=== PATIENT | female | born 1930 | race Caucasian/White ===

== ENCOUNTER 2017-12-14 10:11 | Outpatient (CLI) | payer MEDICARE, OTHER ==
[~2017-12-14] VITALS: Ht 167.6 cm; Wt 81.6 kg
[~2017-12-14 10:11] MED LIST: AMIO200T57 PO; APIX2.5T PO; ATOR10TA PO; CEFP100T7 PO; CHOL200035 PO; ESOM20CA PO; LEVO75TA PO; NEBI20TA2 PO; POTA20TA10 PO; VALS1TAB79 PO; ZOLP5TAB8 PO
[2017-12-14 10:36] LABS: TOTAL HEMOGLOBIN 13.2 G/dl (12.0-16.0)
[2017-12-14] MEDS: albuterol 2.5 MG/3 ML nebule NEB ONE (11:12)
== END 2017-12-14 23:59 | disposition home or self-care (01) ==
LOC: RT 10:11
PROVIDERS: ATTEND Internal Medicine Cardiovascular Disease
DX: I10 Essential (primary) hypertension (principal); Z85.828 Personal history of other malignant neoplasm of skin; Z79.899 Other long term (current) drug therapy
CPT/HCPCS: 71046; 85018; 94060; 94640; 94727; 94729; 94760

== ENCOUNTER 2018-12-19 12:06 | Outpatient (CLI) | payer MEDICARE, OTHER ==
[~2018-12-19 12:06] MED LIST changes: +AMIO200T40 PO; -AMIO200T57 PO
== END 2018-12-19 23:59 | disposition home or self-care (01) ==
LOC: RAD 12:06
PROVIDERS: ATTEND Internal Medicine Cardiovascular Disease
DX: Z48.812 Encounter for surgical aftercare following surgery on the circulatory system (principal); J98.4 Other disorders of lung; I10 Essential (primary) hypertension; Z95.0 Presence of cardiac pacemaker; Z90.710 Acquired absence of both cervix and uterus; Z96.611 Presence of right artificial shoulder joint; Z96.643 Presence of artificial hip joint, bilateral
CPT/HCPCS: 71046

== ENCOUNTER 2019-10-11 01:46 | Inpatient (IN) | payer MEDICARE, OTHER ==
[~2019-10-11] VITALS: Ht 167.6 cm; Wt 77.0 kg
[~2019-10-11 01:46] MED LIST changes: -AMIO200T40 PO; +AMIO200T61 PO
[2019-10-11] MEDS ORDERED: METO10TA8 PO (02:04)
[2019-10-11] MEDS ORDERED: DRON400T2 PO (02:04)
[2019-10-11 02:07] LABS: BASOPHILS # (AUTO) 0.1 X10'3 (0-0.2); BASOPHILS % (AUTO) 1.4 % (0-1); EOSINOPHILS # (AUTO) 0.2 X10'3 (0-0.9); HEMATOCRIT 35.6 % (35.0-45.0); HEMOGLOBIN 11.8 g/dl (12.0-16.0); LYMPHOCYTES # (AUTO) 1.1 X10'3 (1.1-4.8); LYMPHOCYTES % (AUTO) 24.4 % (21-51); MEAN CORPUSCULAR HEMOGLOBIN 30.2 PG (27.0-31.0); MEAN CORPUSCULAR HGB CONC 33.2 g/dL (33.0-36.5); MEAN CORPUSCULAR VOLUME 90.8 FL (78-98); MEAN PLATELET VOLUME 9.3 FL (7.4-10.4); MONOCYTES # (AUTO) 0.3 X10'3 (0-0.9); NEUTROPHILS # (AUTO) 2.8 X10'3 (1.8-7.7); NEUTROPHILS % (AUTO) 63.2 % (42-75); PLATELET COUNT 139 X10'3 (140-440); RED BLOOD COUNT 3.92 X10'6 (4.20-5.60); RED CELL DISTRIBUTION WIDTH 14.2 % (11.5-14.5); WHITE BLOOD COUNT 4.4 X10'3 (4.5-11.0)
[2019-10-11 02:17] LABS: ALANINE AMINOTRANSFERASE 26 U/L (12-78); ALBUMIN 3.8 G/DL (3.4-5.0); ALBUMIN/GLOBULIN RATIO 1.3 (1.1-1.5); ALKALINE PHOSPHATASE 82 IU/L (46-116); ANION GAP 9 (8-16); ASPARTATE AMINO TRANSFERASE 26 U/L (10-37); BILIRUBIN,TOTAL 0.4 MG/DL (0.1-1.0); BLOOD UREA NITROGEN 23 MG/DL (7-18); BUN/CREATININE RATIO 16.1 (6.6-38.0); CALCIUM 8.9 MG/DL (8.5-10.1); CHLORIDE 101 MMOL/L (99-107); CREATININE 1.43 MG/DL (0.40-0.90); GLUCOSE 113 MG/DL (70-104); POTASSIUM 4.4 MMOL/L (3.5-5.1); SODIUM 137 MMOL/L (135-145); TOTAL PROTEIN 6.7 G/DL (6.4-8.2); eGFR 35 ML/MIN
[2019-10-11] MEDS ORDERED: furosemide 10 MG/1 ML 10ml inj IV ONE (02:40)
[2019-10-11] MEDS ORDERED: acetaminophen 325mg tablet PO ONE (02:40)
[2019-10-11] MEDS ORDERED: acetaminophen 325mg tablet PO PRN (03:10)
[2019-10-11] MEDS ORDERED: morphine 2 MG/ML inj. syringe IV PRN ×2 (03:10)
[2019-10-11] MEDS ORDERED: ondansetron/PF 4mg/2ml inj IV PRN (03:10)
[2019-10-11] MEDS ORDERED: magnesium hydroxide 30ml (MOM) UD suspension PO PRN (03:10)
[2019-10-11] MEDS ORDERED: mag hydrox/Alum hydrox/simeth 30ml oral suspension PO PRN (03:10)
[2019-10-11] MEDS ORDERED: zolpidem 5mg tablet PO PRN (03:15)
[2019-10-11] MEDS: furosemide 20 MG/2 ML vial IV SCH ×3 (03:15→21:32)
[2019-10-11 03:45] VITALS: BP 150/59
[2019-10-11 06:00] VITALS: BP 134/70
--- NOTE | 2019-10-11 06:23 | NUR ---
Problems reprioritized. Patient report given, questions answered & plan of care reviewed with Yaz BARONE.
--- NOTE | 2019-10-11 06:29 | NUR ---
Patient in room PCU 3009. I have received report from Maia BARONE and had the opportunity to ask questions and assume patient care.
[2019-10-11] MEDS: dronedarone hcl 400mg tablet PO SCH ×2 (08:00→21:20)
[2019-10-11] MEDS: apixaban 2.5mg tablet PO SCH ×2 (08:32→21:21)
[2019-10-11] MEDS: potassium Cl 20 mEq SR tablet PO SCH ×2 (08:33→21:20)
[2019-10-11] MEDS: levoTHYROXINE 75mcg tablet PO SCH (08:33)
[2019-10-11] MEDS: metoprolol tartrate 50mg tablet PO SCH ×2 (08:34→21:32)
[2019-10-11] MEDS: pantoprazole 40mg Tablet.DR PO SCH (08:34)
[2019-10-11] MEDS: atorvastatin 10mg tablet PO SCH (08:35)
[2019-10-11] MEDS ORDERED: pneumococcal 23-VAL P-sac vacc 25 mcg/0.5ml vial IMVAC ONE (10:00)
[2019-10-11 11:00] VITALS: BP 143/68
[2019-10-11 15:00] VITALS: BP 132/59
[2019-10-11 18:00] VITALS: BP 122/53
--- NOTE | 2019-10-11 18:00 | NUR ---
Patient in room PCU 3009. I have received report from LIZABETH Mukherjee and had the opportunity to ask questions and assume patient care. Pt is alert and oriented X4, denies CP, SOB, n/v, rated pain 0/10.
--- NOTE | 2019-10-11 18:27 | NUR ---
Problems reprioritized. Patient report given, questions answered & plan of care reviewed with Bora BARONE. Patient stable at time of transfer of care.
[2019-10-11 22:00] VITALS: BP 132/61
[2019-10-12 02:00] VITALS: BP 100/50
[2019-10-12 05:23] LABS: BASOPHILS % (AUTO) 0.9 % (0-1); EOSINOPHILS # (AUTO) 0.1 X10'3 (0-0.9); EOSINOPHILS % (AUTO) 4.1 % (0-6); HEMOGLOBIN 10.8 g/dl (12.0-16.0); LYMPHOCYTES # (AUTO) 0.8 X10'3 (1.1-4.8); MEAN CORPUSCULAR HEMOGLOBIN 30.6 PG (27.0-31.0); MEAN CORPUSCULAR HGB CONC 33.7 g/dL (33.0-36.5); MEAN CORPUSCULAR VOLUME 90.8 FL (78-98); MEAN PLATELET VOLUME 9.4 FL (7.4-10.4); MONOCYTES # (AUTO) 0.3 X10'3 (0-0.9); MONOCYTES % (AUTO) 10.3 % (2-12); NEUTROPHILS # (AUTO) 1.8 X10'3 (1.8-7.7); NEUTROPHILS % (AUTO) 58.7 % (42-75); PLATELET COUNT 109 X10'3 (140-440); RED BLOOD COUNT 3.52 X10'6 (4.20-5.60); RED CELL DISTRIBUTION WIDTH 13.9 % (11.5-14.5)
[2019-10-12 05:32] LABS: ALBUMIN 3.5 G/DL (3.4-5.0); ANION GAP 6 (8-16); BLOOD UREA NITROGEN 31 MG/DL (7-18); BUN/CREATININE RATIO 21.1 (6.6-38.0); CHLORIDE 99 MMOL/L (99-107); CREATININE 1.47 MG/DL (0.40-0.90); GLUCOSE 101 MG/DL (70-104); POTASSIUM 3.7 MMOL/L (3.5-5.1); SODIUM 138 MMOL/L (135-145); TOTAL CARBON DIOXIDE 33.1 MMOL/L (24-32); eGFR 34 ML/MIN
[2019-10-12 06:00] VITALS: BP 135/49
--- NOTE | 2019-10-12 06:29 | NUR ---
Problems reprioritized. Patient report given, questions answered & plan of care reviewed with Yaz RN Patient stable at shift change
--- NOTE | 2019-10-12 06:29 | NUR ---
Patient in room PCU 3009. I have received report from Bora BARONE and had the opportunity to ask questions and assume patient care.
[2019-10-12 06:47] LABS: ANISOCYTOSIS 1+; PLATELET ESTIMATE DECREASED; TOTAL CELLS COUNTED 100
[2019-10-12] MEDS: metoprolol tartrate 50mg tablet PO SCH (08:00)
[2019-10-12] MEDS: atorvastatin 10mg tablet PO SCH (08:44)
[2019-10-12] MEDS: levoTHYROXINE 75mcg tablet PO SCH (08:44)
[2019-10-12] MEDS: pantoprazole 40mg Tablet.DR PO SCH (08:44)
[2019-10-12] MEDS: apixaban 2.5mg tablet PO SCH (08:44)
[2019-10-12] MEDS: potassium Cl 20 mEq SR tablet PO SCH (08:44)
[2019-10-12] MEDS: dronedarone hcl 400mg tablet PO SCH (08:44)
[2019-10-12] MEDS: furosemide 20 MG/2 ML vial IV SCH (08:46)
[2019-10-12 11:00] VITALS: BP 117/48
[2019-10-12] MEDS ORDERED: pneumococcal 23-VAL P-sac vacc 25 mcg/0.5ml vial IMVAC ONE (13:10)
--- NOTE | 2019-10-12 13:20 | NUR ---
Patient stable for discharge per MD orders. All discharge instructions reviewed with patient and all questions answered. No new prescriptions. PIV and property assessment monitor discontinued. Belongings collected and sent with patient. Patient left in private vehicle with . Patient wheeled down to lobby by PCT aide.
== END 2019-10-12 13:58 | disposition home or self-care (01) | DRG 291 ==
LOC: ER 01:47 → PCU 3S 03:58
PROVIDERS: ADMIT Internal Medicine; ATTEND Family Medicine
PROC: 3E0234Z Introduction of Serum, Toxoid and Vaccine into Muscle, Percutaneous Approach (ICD-10-PCS; principal; 2019-10-12)
DX: I13.0 Hypertensive heart and chronic kidney disease with heart failure and stage 1 through stage 4 chronic kidney disease, or unspecified chronic kidney disease (principal); I50.33 Acute on chronic diastolic (congestive) heart failure; I48.20 Chronic atrial fibrillation, unspecified; E03.9 Hypothyroidism, unspecified; D64.9 Anemia, unspecified; E78.00 Pure hypercholesterolemia, unspecified; E78.5 Hyperlipidemia, unspecified; G47.00 Insomnia, unspecified; I08.1 Rheumatic disorders of both mitral and tricuspid valves; I48.0 Paroxysmal atrial fibrillation; G47.30 Sleep apnea, unspecified; G89.29 Other chronic pain; I49.5 Sick sinus syndrome; K21.9 Gastro-esophageal reflux disease without esophagitis; M54.9 Dorsalgia, unspecified; K29.70 Gastritis, unspecified, without bleeding; N18.3 Chronic kidney disease, stage 3 (moderate); Z80.3 Family history of malignant neoplasm of breast; Z85.72 Personal history of non-Hodgkin lymphomas; Z90.49 Acquired absence of other specified parts of digestive tract; Z90.710 Acquired absence of both cervix and uterus; Z95.0 Presence of cardiac pacemaker; Z23 Encounter for immunization; Z88.0 Allergy status to penicillin; Z88.2 Allergy status to sulfonamides; Z88.8 Allergy status to other drugs, medicaments and biological substances; Z80.1 Family history of malignant neoplasm of trachea, bronchus and lung; Z79.899 Other long term (current) drug therapy
CPT/HCPCS: 36415; 71045; 80048; 80053; 83880; 84484; 85025; 87081; 90732; 93005; 93306; 96374; 99285; G0378; J1940

== ENCOUNTER 2019-10-29 10:18 | Emergency (ER) | payer MEDICARE, OTHER ==
[~2019-10-29] VITALS: Ht 167.6 cm; Wt 90.0 kg
[~2019-10-29 10:18] MED LIST changes: -AMIO200T61 PO; -CEFP100T7 PO; -CHOL200035 PO; +DRON400T2 PO; +METO10TA8 PO; -VALS1TAB79 PO
[2019-10-29 11:09] LABS: EOSINOPHILS # (AUTO) 0.1 X10'3 (0-0.9); EOSINOPHILS % (AUTO) 1.7 % (0-6); HEMATOCRIT 33.2 % (35.0-45.0); HEMOGLOBIN 11.1 g/dl (12.0-16.0); LYMPHOCYTES # (AUTO) 0.9 X10'3 (1.1-4.8); LYMPHOCYTES % (AUTO) 18.6 % (21-51); MEAN CORPUSCULAR HEMOGLOBIN 30.6 PG (27.0-31.0); MEAN CORPUSCULAR HGB CONC 33.5 g/dL (33.0-36.5); MEAN CORPUSCULAR VOLUME 91.5 FL (78-98); MONOCYTES # (AUTO) 0.4 X10'3 (0-0.9); MONOCYTES % (AUTO) 8.5 % (2-12); NEUTROPHILS # (AUTO) 3.2 X10'3 (1.8-7.7); NEUTROPHILS % (AUTO) 70.2 % (42-75); PLATELET COUNT 128 X10'3 (140-440); RED BLOOD COUNT 3.63 X10'6 (4.20-5.60); RED CELL DISTRIBUTION WIDTH 14.2 % (11.5-14.5); WHITE BLOOD COUNT 4.6 X10'3 (4.5-11.0)
[2019-10-29 11:25] LABS: ALANINE AMINOTRANSFERASE 28 U/L (12-78); ALBUMIN/GLOBULIN RATIO 1.4 (1.1-1.5); ALKALINE PHOSPHATASE 78 IU/L (46-116); ANION GAP 9 (8-16); ASPARTATE AMINO TRANSFERASE 19 U/L (10-37); BILIRUBIN,TOTAL 0.6 MG/DL (0.1-1.0); BLOOD UREA NITROGEN 25 MG/DL (7-18); BUN/CREATININE RATIO 17.4 (6.6-38.0); CALCIUM 9.1 MG/DL (8.5-10.1); CHLORIDE 103 MMOL/L (99-107); CREATININE 1.44 MG/DL (0.40-0.90); GLUCOSE 101 MG/DL (70-104); POTASSIUM 4.4 MMOL/L (3.5-5.1); SODIUM 139 MMOL/L (135-145); TOTAL CARBON DIOXIDE 26.7 MMOL/L (24-32); TOTAL PROTEIN 6.8 G/DL (6.4-8.2); eGFR 34 ML/MIN
[2019-10-29] MEDS ORDERED: furosemide 40mg/4ml inj IV ONE (13:40)
[2019-10-29 15:52] VITALS: BP 159/88
== END 2019-10-29 15:54 | disposition home or self-care (01) ==
LOC: ER 10:19
DX: I50.9 Heart failure, unspecified (principal); I48.91 Unspecified atrial fibrillation; E78.00 Pure hypercholesterolemia, unspecified; I11.0 Hypertensive heart disease with heart failure; K21.9 Gastro-esophageal reflux disease without esophagitis; G89.29 Other chronic pain; Z90.49 Acquired absence of other specified parts of digestive tract; Z98.890 Other specified postprocedural states; Z88.8 Allergy status to other drugs, medicaments and biological substances; Z88.0 Allergy status to penicillin; Z88.2 Allergy status to sulfonamides; Z79.01 Long term (current) use of anticoagulants; Z79.899 Other long term (current) drug therapy
CPT/HCPCS: 36415; 71045; 80053; 83880; 84484; 85025; 93005; 96374; 99284; J1940

== ENCOUNTER 2019-11-04 16:19 | Emergency (ER) | payer MEDICARE, OTHER ==
[~2019-11-04] VITALS: Ht 167.6 cm; Wt 79.0 kg
[2019-11-04 18:29] LABS: EOSINOPHILS # (AUTO) 0.1 X10'3 (0-0.9); HEMATOCRIT 34.4 % (35.0-45.0); HEMOGLOBIN 11.5 g/dl (12.0-16.0); LYMPHOCYTES % (AUTO) 21.5 % (21-51); MEAN CORPUSCULAR HEMOGLOBIN 30.5 PG (27.0-31.0); MEAN CORPUSCULAR HGB CONC 33.5 g/dL (33.0-36.5); MEAN PLATELET VOLUME 9.8 FL (7.4-10.4); MONOCYTES # (AUTO) 0.3 X10'3 (0-0.9); MONOCYTES % (AUTO) 7.3 % (2-12); NEUTROPHILS % (AUTO) 68.2 % (42-75); PLATELET COUNT 131 X10'3 (140-440); RED BLOOD COUNT 3.78 X10'6 (4.20-5.60); RED CELL DISTRIBUTION WIDTH 14.3 % (11.5-14.5); WHITE BLOOD COUNT 4.5 X10'3 (4.5-11.0)
[2019-11-04 18:38] LABS: ALANINE AMINOTRANSFERASE 46 U/L (12-78); ALBUMIN/GLOBULIN RATIO 1.5 (1.1-1.5); ALKALINE PHOSPHATASE 81 IU/L (46-116); ANION GAP 3 (8-16); ASPARTATE AMINO TRANSFERASE 29 U/L (10-37); BILIRUBIN,TOTAL 0.5 MG/DL (0.1-1.0); BLOOD UREA NITROGEN 19 MG/DL (7-18); BUN/CREATININE RATIO 15.1 (6.6-38.0); CALCIUM 9.2 MG/DL (8.5-10.1); CHLORIDE 104 MMOL/L (99-107); CREATININE 1.26 MG/DL (0.40-0.90); GLUCOSE 98 MG/DL (70-104); SODIUM 139 MMOL/L (135-145); TOTAL CARBON DIOXIDE 31.9 MMOL/L (24-32); TOTAL PROTEIN 6.7 G/DL (6.4-8.2); eGFR 40 ML/MIN
[2019-11-04 20:15] VITALS: BP 156/87
== END 2019-11-04 20:12 | disposition home or self-care (01) ==
LOC: ER 16:20
DX: I11.0 Hypertensive heart disease with heart failure (principal); I50.9 Heart failure, unspecified; I48.91 Unspecified atrial fibrillation; E78.00 Pure hypercholesterolemia, unspecified; K21.9 Gastro-esophageal reflux disease without esophagitis; G89.29 Other chronic pain; M19.90 Unspecified osteoarthritis, unspecified site; F10.99 Alcohol use, unspecified with unspecified alcohol-induced disorder; Z86.2 Personal history of diseases of the blood and blood-forming organs and certain disorders involving the immune mechanism; Z88.8 Allergy status to other drugs, medicaments and biological substances; Z88.0 Allergy status to penicillin; Z88.2 Allergy status to sulfonamides; Z79.899 Other long term (current) drug therapy; Z90.49 Acquired absence of other specified parts of digestive tract; Z98.890 Other specified postprocedural states; Y90.9 Presence of alcohol in blood, level not specified
CPT/HCPCS: 36415; 71045; 80053; 83880; 84484; 85025; 93005; 99284

== ENCOUNTER 2019-11-25 13:27 | Inpatient (IN) | payer MEDICARE, OTHER ==
[~2019-11-25] VITALS: Ht 167.6 cm; Wt 77.0 kg
[2019-11-25 14:19] LABS: BASOPHILS % (AUTO) 0.4 % (0-1); EOSINOPHILS % (AUTO) 0.2 % (0-6); HEMATOCRIT 39.4 % (35.0-45.0); HEMOGLOBIN 13.2 g/dl (12.0-16.0); LYMPHOCYTES # (AUTO) 0.3 X10'3 (1.1-4.8); LYMPHOCYTES % (AUTO) 4.3 % (21-51); MEAN CORPUSCULAR HEMOGLOBIN 29.9 PG (27.0-31.0); MEAN CORPUSCULAR HGB CONC 33.5 g/dL (33.0-36.5); MEAN CORPUSCULAR VOLUME 89.2 FL (78-98); MEAN PLATELET VOLUME 9.1 FL (7.4-10.4); MONOCYTES # (AUTO) 0.3 X10'3 (0-0.9); MONOCYTES % (AUTO) 4.5 % (2-12); NEUTROPHILS # (AUTO) 5.5 X10'3 (1.8-7.7); NEUTROPHILS % (AUTO) 90.6 % (42-75); PLATELET COUNT 141 X10'3 (140-440); RED BLOOD COUNT 4.41 X10'6 (4.20-5.60); RED CELL DISTRIBUTION WIDTH 14.2 % (11.5-14.5)
[2019-11-25 14:35] LABS: ALANINE AMINOTRANSFERASE 32 U/L (12-78); ALBUMIN 4.3 G/DL (3.4-5.0); ALBUMIN/GLOBULIN RATIO 1.7 (1.1-1.5); ALKALINE PHOSPHATASE 85 IU/L (46-116); ANION GAP 8 (8-16); ASPARTATE AMINO TRANSFERASE 15 U/L (10-37); BILIRUBIN,TOTAL 0.9 MG/DL (0.1-1.0); BLOOD UREA NITROGEN 21 MG/DL (7-18); BUN/CREATININE RATIO 16.4 (6.6-38.0); CALCIUM 8.9 MG/DL (8.5-10.1); CHLORIDE 94 MMOL/L (99-107); CREATININE 1.28 MG/DL (0.40-0.90); GLUCOSE 127 MG/DL (70-104); POTASSIUM 4.3 MMOL/L (3.5-5.1); SODIUM 130 MMOL/L (135-145); TOTAL CARBON DIOXIDE 28.5 MMOL/L (24-32); TOTAL PROTEIN 6.9 G/DL (6.4-8.2); eGFR 39 ML/MIN
[2019-11-25] MEDS ORDERED: furosemide 10 MG/1 ML 10ml inj IV ONE (15:10)
[2019-11-25] MEDS ORDERED: methylPREDNISolone sod succ 125mg/2ml vial IV ONE (15:10)
[2019-11-25] MEDS ORDERED: albuterol 2.5 MG/3 ML nebule NEB ONE (15:10)
[2019-11-25 15:30] LABS: TROPONIN I 0.04 NG/ML (0.0-0.05)
[2019-11-25] MEDS ORDERED: POTA20TA10 PO (15:36)
[2019-11-25] MEDS ORDERED: ZAR2.5T PO (15:36)
[2019-11-25] MEDS ORDERED: DRON400T2 PO (15:36)
[2019-11-25] MEDS ORDERED: LISI10TA4 PO (15:36)
[2019-11-25] MEDS ORDERED: magnesium 4gm in 100ml NS 100 ML IV PRN (15:55)
[2019-11-25] MEDS ORDERED: ondansetron/PF 4mg/2ml inj IV PRN (15:55)
[2019-11-25] MEDS ORDERED: potassium CL 10mEq/100ml bag 100 ML IV PRN ×2 (15:55)
[2019-11-25] MEDS ORDERED: magnesium 2GM in 50ml NS 50 ML IV PRN (15:55)
[2019-11-25] MEDS ORDERED: potassium Cl 20 mEq SR tablet PO PRN ×2 (15:55)
[2019-11-25] MEDS ORDERED: magnesium Cl slow-release 64mg tablet PO PRN (15:55)
[2019-11-25 19:00] VITALS: BP 164/79
[2019-11-25] MEDS ORDERED: zolpidem 5mg tablet PO PRN ×3 (19:25→19:55)
[2019-11-25] MEDS ORDERED: ZOLP10TA5 PO (19:52)
[2019-11-25] MEDS ORDERED: DRON400T6 PO (19:52)
[2019-11-25] MEDS: K and/or MAG REPLACEMENT MC SCH (20:00)
[2019-11-25] MEDS ORDERED: heparin, porcine 5000 units/ml vial SQ SCH (20:00)
[2019-11-25] MEDS ORDERED: dronedarone hcl 400mg tablet PO SCH (20:00)
[2019-11-25] MEDS: apixaban 2.5mg tablet PO SCH (20:17)
[2019-11-25] MEDS: lisinopril 10 MG tablet PO SCH (20:17)
[2019-11-25] MEDS: methylPREDNISolone sod succ/PF 40mg inj. IV SCH (20:18)
[2019-11-25] MEDS: levoTHYROXINE 75mcg tablet PO SCH (20:19)
[2019-11-25] MEDS: dronedarone hcl 400mg tablet PO SCH (20:55)
[2019-11-25] MEDS: Melatonin 3mg tablet PO SCH (20:55)
[2019-11-25] MEDS: albuterol 2.5 MG/3 ML nebule NEB SCH (21:18)
[2019-11-25 23:00] VITALS: BP 107/62
[2019-11-26] MEDS: albuterol 2.5 MG/3 ML nebule NEB SCH ×7 (00:04→23:31)
[2019-11-26 06:09] LABS: ALBUMIN 3.9 G/DL (3.4-5.0); ANION GAP 10 (8-16); BLOOD UREA NITROGEN 34 MG/DL (7-18); BUN/CREATININE RATIO 19.7 (6.6-38.0); CALCIUM 8.8 MG/DL (8.5-10.1); CHLORIDE 92 MMOL/L (99-107); CREATININE 1.73 MG/DL (0.40-0.90); GLUCOSE 157 MG/DL (70-104); MAGNESIUM 1.6 MG/DL (1.5-2.4); POTASSIUM 3.5 MMOL/L (3.5-5.1); SODIUM 131 MMOL/L (135-145); eGFR 28 ML/MIN
[2019-11-26 06:14] LABS: BASOPHILS % (AUTO) 0.1 % (0-1); EOSINOPHILS % (AUTO) 0.1 % (0-6); HEMATOCRIT 36.9 % (35.0-45.0); HEMOGLOBIN 12.6 g/dl (12.0-16.0); LYMPHOCYTES # (AUTO) 0.4 X10'3 (1.1-4.8); LYMPHOCYTES % (AUTO) 10.2 % (21-51); MEAN CORPUSCULAR HEMOGLOBIN 30.4 PG (27.0-31.0); MEAN CORPUSCULAR HGB CONC 34.2 g/dL (33.0-36.5); MEAN CORPUSCULAR VOLUME 88.8 FL (78-98); MEAN PLATELET VOLUME 9.6 FL (7.4-10.4); MONOCYTES # (AUTO) 0.1 X10'3 (0-0.9); MONOCYTES % (AUTO) 3.9 % (2-12); NEUTROPHILS % (AUTO) 85.7 % (42-75); PLATELET COUNT 129 X10'3 (140-440); RED BLOOD COUNT 4.15 X10'6 (4.20-5.60); RED CELL DISTRIBUTION WIDTH 14.5 % (11.5-14.5); WHITE BLOOD COUNT 3.5 X10'3 (4.5-11.0)
--- NOTE | 2019-11-26 06:35 | NUR ---
Problems reprioritized. Patient report given, questions answered & plan of care reviewed with DENNY. Addendum: 11/26/19 at 0636 by Magen Amaya RN Amended: Links added.
--- NOTE | 2019-11-26 06:41 | NUR ---
Patient in room BETY 355. I have received report from YAHAIRA BARONE and had the opportunity to ask questions and assume patient care.
[2019-11-26 07:00] VITALS: BP 119/66
[2019-11-26] MEDS: K and/or MAG REPLACEMENT MC SCH ×2 (08:00→20:00)
[2019-11-26] MEDS: pantoprazole 40mg Tablet.DR PO SCH (08:16)
[2019-11-26] MEDS: methylPREDNISolone sod succ/PF 40mg inj. IV SCH ×2 (08:16→20:19)
[2019-11-26] MEDS: atorvastatin 10mg tablet PO SCH (08:17)
[2019-11-26] MEDS: apixaban 2.5mg tablet PO SCH ×2 (08:18→20:20)
[2019-11-26] MEDS: levoTHYROXINE 75mcg tablet PO SCH (08:18)
[2019-11-26] MEDS: metoprolol tartrate 25mg tablet PO SCH ×2 (08:20→20:19)
[2019-11-26] MEDS: lisinopril 10 MG tablet PO SCH (08:22)
[2019-11-26] MEDS: dronedarone hcl 400mg tablet PO SCH ×3 (08:22→20:20)
[2019-11-26 12:04] VITALS: BP 123/55
--- NOTE | 2019-11-26 17:19 | NUR ---
patient seen by Dr Min, [facility] DC, patient able to void 200mls. Bladder scan showed 65 mls post void. Patient voided another 100mls will continue to monitor.
--- NOTE | 2019-11-26 18:59 | NUR ---
Problems reprioritized. Patient report given, questions answered & plan of care reviewed with Mony Alvarado RN.
--- NOTE | 2019-11-26 19:03 | NUR ---
Patient in room BETY 355. I have received report from LIZABETH Lopez and had the opportunity to ask questions and assume patient care.
[2019-11-26 20:04] VITALS: BP 140/69
[2019-11-26] MEDS: Melatonin 3mg tablet PO SCH (20:20)
--- NOTE | 2019-11-26 20:30 | NUR ---
Patient states she only takes multaq 200 mg BID. Pharmacy has 400 mg ordered, however, her regular doctor (Dr. Wray) tells her to cut the medication in half.
[2019-11-27] VITALS: BP 109/64
--- NOTE | 2019-11-27 00:10 | NUR ---
Patient in room BETY 355. I have received report from Sammie BARONE and had the opportunity to ask questions and assume patient care.
--- NOTE | 2019-11-27 00:12 | NUR ---
Problems reprioritized. Patient report given, questions answered & plan of care reviewed with LIZABETH Panchal.
--- NOTE | 2019-11-27 00:15 | NUR ---
At this time, patient is resting peacefully with eyes closed and respirations steady. Bed is low/locked with side rails up.
--- NOTE | 2019-11-27 01:30 | NUR ---
I have reviewed previous assessment and agree with findings.
[2019-11-27] MEDS: albuterol 2.5 MG/3 ML nebule NEB SCH ×6 (03:13→23:07)
[2019-11-27 05:41] LABS: BASOPHILS % (AUTO) 0.1 % (0-1); EOSINOPHILS % (AUTO) 0 % (0-6); HEMATOCRIT 35.5 % (35.0-45.0); HEMOGLOBIN 12.1 g/dl (12.0-16.0); LYMPHOCYTES # (AUTO) 0.3 X10'3 (1.1-4.8); LYMPHOCYTES % (AUTO) 5.5 % (21-51); MEAN CORPUSCULAR HEMOGLOBIN 30.3 PG (27.0-31.0); MEAN CORPUSCULAR VOLUME 89.2 FL (78-98); MEAN PLATELET VOLUME 9.6 FL (7.4-10.4); MONOCYTES # (AUTO) 0.3 X10'3 (0-0.9); MONOCYTES % (AUTO) 4.8 % (2-12); NEUTROPHILS % (AUTO) 89.6 % (42-75); PLATELET COUNT 103 X10'3 (140-440); RED BLOOD COUNT 3.98 X10'6 (4.20-5.60); RED CELL DISTRIBUTION WIDTH 14.8 % (11.5-14.5); WHITE BLOOD COUNT 5.5 X10'3 (4.5-11.0)
[2019-11-27 06:11] LABS: ALBUMIN 3.7 G/DL (3.4-5.0); ANION GAP 10 (8-16); BLOOD UREA NITROGEN 41 MG/DL (7-18); BUN/CREATININE RATIO 25.8 (6.6-38.0); CALCIUM 8.3 MG/DL (8.5-10.1); CHLORIDE 93 MMOL/L (99-107); CREATININE 1.59 MG/DL (0.40-0.90); GLUCOSE 169 MG/DL (70-104); MAGNESIUM 1.8 MG/DL (1.5-2.4); POTASSIUM 3.6 MMOL/L (3.5-5.1); SODIUM 130 MMOL/L (135-145); TOTAL CARBON DIOXIDE 27.4 MMOL/L (24-32); eGFR 31 ML/MIN
--- NOTE | 2019-11-27 06:35 | NUR ---
Patient in room BETY 355. I have received report from Ansley BARONE and had the opportunity to ask questions and assume patient care.
--- NOTE | 2019-11-27 06:40 | NUR ---
Problems reprioritized. Patient report given, questions answered & plan of care reviewed with Stacey BARONE.
[2019-11-27 07:30] VITALS: BP 104/59
[2019-11-27] MEDS: atorvastatin 10mg tablet PO SCH (07:35)
[2019-11-27] MEDS: lisinopril 10 MG tablet PO SCH (07:35)
[2019-11-27] MEDS: pantoprazole 40mg Tablet.DR PO SCH (07:35)
[2019-11-27] MEDS: levoTHYROXINE 75mcg tablet PO SCH (07:35)
[2019-11-27] MEDS: apixaban 2.5mg tablet PO SCH ×2 (07:35→19:55)
[2019-11-27] MEDS: methylPREDNISolone sod succ/PF 40mg inj. IV SCH ×4 (07:36→19:55)
[2019-11-27 07:54] VITALS: BP 100/64
[2019-11-27] MEDS: K and/or MAG REPLACEMENT MC SCH ×2 (08:00→19:59)
[2019-11-27 10:00] VITALS: BP 140/68
[2019-11-27] MEDS: metoprolol tartrate 25mg tablet PO SCH ×2 (10:16→19:56)
[2019-11-27 11:00] VITALS: BP 132/57
--- NOTE | 2019-11-27 15:00 | NUR ---
PT REFUSED HER MULTAQ 400 MG THIS AM. PT WANTED TO HAVE 200MG IN THE AM AND 200MG AT BED TIME. CONTACTED PHARMACY SPOKE TO BILL AND HE ADVISED TO GET A NEW ORDER WITH THE BID INSTRUCTIONS. DR MCCLOUD APPROVED CHANGED OF TIMES AND MG LATER IN THE DAY. PHARMACY ADVISED TO NOT GIVE MED AND START WITH NEW SCHEDULE DUE TO THE FACT THAT IT HAS TO BE GIVEN AT LEAST WITHIN 6 HR FROM THE NEXT DOSE. PT WILL GET 200MG TONIGHT AND BACK ON SCHEDULE TOMORROW MORNING.
--- NOTE | 2019-11-27 18:15 | NUR ---
Patient in room BETY 355. I have received report from Stacey BARONE and had the opportunity to ask questions and assume patient care.
[2019-11-27 19:00] VITALS: BP 145/77
--- NOTE | 2019-11-27 19:07 | NUR ---
Problems reprioritized. Patient report given, questions answered & plan of care reviewed with JARROD BARONE.
[2019-11-27] MEDS ORDERED: dronedarone hcl 400mg tablet PO SCH (20:00)
[2019-11-27] MEDS: Melatonin 3mg tablet PO SCH (21:00)
[2019-11-27] MEDS ORDERED: magnesium hydroxide 30ml (MOM) UD suspension PO PRN (23:10)
[2019-11-27] MEDS ORDERED: bisacodyl 10mg suppository rectal RC PRN (23:10)
[2019-11-27] MEDS: benzonatate 100mg capsule PO PRN (23:34)
[2019-11-28] VITALS: BP 179/78
[2019-11-28 00:15] VITALS: BP 166/72
[2019-11-28 01:00] VITALS: BP 135/65
[2019-11-28] MEDS: methylPREDNISolone sod succ/PF 40mg inj. IV SCH ×4 (02:33→20:45)
[2019-11-28] MEDS: albuterol 2.5 MG/3 ML nebule NEB SCH ×6 (02:48→23:09)
[2019-11-28 05:55] LABS: BASOPHILS % (AUTO) 0.1 % (0-1); EOSINOPHILS % (AUTO) 0 % (0-6); HEMATOCRIT 38.6 % (35.0-45.0); LYMPHOCYTES # (AUTO) 0.3 X10'3 (1.1-4.8); LYMPHOCYTES % (AUTO) 2.9 % (21-51); MEAN CORPUSCULAR HEMOGLOBIN 30.3 PG (27.0-31.0); MEAN CORPUSCULAR HGB CONC 33.7 g/dL (33.0-36.5); MEAN PLATELET VOLUME 9.9 FL (7.4-10.4); MONOCYTES # (AUTO) 0.4 X10'3 (0-0.9); MONOCYTES % (AUTO) 4.4 % (2-12); NEUTROPHILS % (AUTO) 92.6 % (42-75); PLATELET COUNT 132 X10'3 (140-440); RED BLOOD COUNT 4.29 X10'6 (4.20-5.60); RED CELL DISTRIBUTION WIDTH 14.5 % (11.5-14.5); WHITE BLOOD COUNT 9.7 X10'3 (4.5-11.0)
[2019-11-28 06:05] LABS: ANION GAP 7 (8-16); BLOOD UREA NITROGEN 37 MG/DL (7-18); BUN/CREATININE RATIO 29.1 (6.6-38.0); CHLORIDE 97 MMOL/L (99-107); CREATININE 1.27 MG/DL (0.40-0.90); GLUCOSE 147 MG/DL (70-104); MAGNESIUM 2.3 MG/DL (1.5-2.4); POTASSIUM 4.4 MMOL/L (3.5-5.1); SODIUM 135 MMOL/L (135-145); TOTAL CARBON DIOXIDE 31.5 MMOL/L (24-32); eGFR 40 ML/MIN
--- NOTE | 2019-11-28 06:20 | NUR ---
Patient in room BETY 355. I have received report from Ansley BARONE and had the opportunity to ask questions and assume patient care.
--- NOTE | 2019-11-28 07:06 | NUR ---
Problems reprioritized. Patient report given, questions answered & plan of care reviewed with Stacey BARONE.
[2019-11-28] MEDS: K and/or MAG REPLACEMENT MC SCH ×2 (08:00→20:00)
[2019-11-28] MEDS: levoTHYROXINE 75mcg tablet PO SCH (08:22)
[2019-11-28] MEDS: atorvastatin 10mg tablet PO SCH (08:22)
[2019-11-28] MEDS: apixaban 2.5mg tablet PO SCH ×2 (08:23→20:48)
[2019-11-28] MEDS: pantoprazole 40mg Tablet.DR PO SCH (08:23)
[2019-11-28] MEDS: docusate sod 100mg capsule PO SCH ×2 (08:23→20:00)
[2019-11-28] MEDS: metoprolol tartrate 25mg tablet PO SCH ×2 (08:25→20:47)
[2019-11-28] MEDS: lisinopril 10 MG tablet PO SCH (08:25)
[2019-11-28] MEDS: dronedarone hcl 400mg tablet PO SCH ×2 (10:02→20:48)
[2019-11-28] MEDS: benzonatate 100mg capsule PO PRN ×2 (10:21→20:47)
[2019-11-28 11:00] VITALS: BP 146/77
--- NOTE | 2019-11-28 18:20 | NUR ---
Problems reprioritized. Patient report given, questions answered & plan of care reviewed with Sammie Dumas RN.
[2019-11-28 20:00] VITALS: BP 174/90
[2019-11-28] MEDS: Melatonin 3mg tablet PO SCH (20:47)
[2019-11-29] VITALS: BP 161/89
[2019-11-29] MEDS: methylPREDNISolone sod succ/PF 40mg inj. IV SCH ×4 (02:00→21:16)
[2019-11-29] MEDS: albuterol 2.5 MG/3 ML nebule NEB SCH ×6 (03:38→23:42)
[2019-11-29 05:33] LABS: BASOPHILS % (AUTO) 0.1 % (0-1); EOSINOPHILS % (AUTO) 0 % (0-6); HEMATOCRIT 36.3 % (35.0-45.0); HEMOGLOBIN 12.4 g/dl (12.0-16.0); LYMPHOCYTES # (AUTO) 0.4 X10'3 (1.1-4.8); LYMPHOCYTES % (AUTO) 7.1 % (21-51); MEAN CORPUSCULAR HEMOGLOBIN 30.7 PG (27.0-31.0); MEAN CORPUSCULAR HGB CONC 34.2 g/dL (33.0-36.5); MEAN CORPUSCULAR VOLUME 89.8 FL (78-98); MEAN PLATELET VOLUME 9.6 FL (7.4-10.4); MONOCYTES # (AUTO) 0.3 X10'3 (0-0.9); MONOCYTES % (AUTO) 5.6 % (2-12); NEUTROPHILS # (AUTO) 4.6 X10'3 (1.8-7.7); NEUTROPHILS % (AUTO) 87.2 % (42-75); PLATELET COUNT 99 X10'3 (140-440); RED BLOOD COUNT 4.04 X10'6 (4.20-5.60); RED CELL DISTRIBUTION WIDTH 14.6 % (11.5-14.5); WHITE BLOOD COUNT 5.3 X10'3 (4.5-11.0)
[2019-11-29 05:59] LABS: ALBUMIN 3.5 G/DL (3.4-5.0); ANION GAP 5 (8-16); BLOOD UREA NITROGEN 36 MG/DL (7-18); CALCIUM 8.5 MG/DL (8.5-10.1); CHLORIDE 98 MMOL/L (99-107); CREATININE 1.09 MG/DL (0.40-0.90); GLUCOSE 148 MG/DL (70-104); MAGNESIUM 2.2 MG/DL (1.5-2.4); POTASSIUM 5.1 MMOL/L (3.5-5.1); SODIUM 135 MMOL/L (135-145); eGFR 47 ML/MIN
--- NOTE | 2019-11-29 06:39 | NUR ---
Patient in room BETY 355. I have received report from Sammie Terry RN and had the opportunity to ask questions and assume patient care.
[2019-11-29] MEDS: levoTHYROXINE 75mcg tablet PO SCH (07:54)
[2019-11-29] MEDS: atorvastatin 10mg tablet PO SCH (07:55)
[2019-11-29] MEDS: apixaban 2.5mg tablet PO SCH ×2 (07:56→21:16)
[2019-11-29] MEDS: docusate sod 100mg capsule PO SCH ×2 (07:56→21:16)
[2019-11-29] MEDS: lisinopril 10 MG tablet PO SCH (07:57)
[2019-11-29] MEDS: pantoprazole 40mg Tablet.DR PO SCH (07:58)
[2019-11-29] MEDS: metoprolol tartrate 25mg tablet PO SCH ×2 (07:58→21:19)
[2019-11-29] MEDS: dronedarone hcl 400mg tablet PO SCH ×2 (07:58→21:19)
[2019-11-29 08:00] VITALS: BP 167/91
[2019-11-29] MEDS ORDERED: morphine 2 MG/ML inj. syringe IV ONE (11:15)
[2019-11-29 12:00] VITALS: BP 156/67
--- NOTE | 2019-11-29 14:47 | NUR ---
Initial: Pt admit with SOB likely d/t COPD with exacerbation. Pt on heart healthy diet documented with 75-100% PO intake throughout LOS meeting nutrient needs. LBM 11/28 after receiving PRN MoM, previously without a BM since 11/25. Pt now with routine Colace. No nutrition diagnosis at this time. Will continue to follow. Recommendations: 1) Continue heart healthy diet 2) Routine bowel care 3) Wt per rx Addendum: 11/29/19 at [address] Amended: Links added.
[2019-11-29] MEDS: normal saline 1000ml 1,000 ML IV SCH (16:02)
[2019-11-29] MEDS: benzonatate 100mg capsule PO PRN ×2 (16:02→23:38)
[2019-11-29 18:00] VITALS: BP 149/95
--- NOTE | 2019-11-29 19:02 | NUR ---
Patient in room [facility]Y 355. I have received report from LIZABETH Ibarra and had the opportunity to ask questions and assume patient care.
[2019-11-29] MEDS: ipratropium 0.5 MG/2.5ML nebule IH SCH ×2 (19:35→23:42)
[2019-11-29] MEDS: K and/or MAG REPLACEMENT MC SCH (19:50)
[2019-11-29] MEDS: furosemide 10 MG/1 ML 10ml inj IV SCH (21:16)
[2019-11-29] MEDS: Melatonin 3mg tablet PO SCH (21:19)
[2019-11-30] VITALS: BP 152/83
[2019-11-30] MEDS: methylPREDNISolone sod succ/PF 40mg inj. IV SCH ×4 (02:21→22:45)
[2019-11-30] MEDS: albuterol 2.5 MG/3 ML nebule NEB SCH ×2 (03:09→08:11)
[2019-11-30] MEDS: ipratropium 0.5 MG/2.5ML nebule IH SCH ×2 (03:09→08:11)
[2019-11-30 06:09] LABS: BASOPHILS % (AUTO) 0.1 % (0-1); EOSINOPHILS % (AUTO) 0 % (0-6); HEMATOCRIT 38.5 % (35.0-45.0); HEMOGLOBIN 13.1 g/dl (12.0-16.0); LYMPHOCYTES # (AUTO) 0.5 X10'3 (1.1-4.8); LYMPHOCYTES % (AUTO) 7.2 % (21-51); MEAN CORPUSCULAR HEMOGLOBIN 30.4 PG (27.0-31.0); MEAN CORPUSCULAR HGB CONC 33.9 g/dL (33.0-36.5); MEAN CORPUSCULAR VOLUME 89.7 FL (78-98); MONOCYTES # (AUTO) 0.3 X10'3 (0-0.9); MONOCYTES % (AUTO) 4.6 % (2-12); NEUTROPHILS # (AUTO) 6.5 X10'3 (1.8-7.7); NEUTROPHILS % (AUTO) 88.1 % (42-75); PLATELET COUNT 116 X10'3 (140-440); RED CELL DISTRIBUTION WIDTH 14.5 % (11.5-14.5); WHITE BLOOD COUNT 7.4 X10'3 (4.5-11.0)
--- NOTE | 2019-11-30 06:16 | NUR ---
Problems reprioritized. Patient report given, questions answered & plan of care reviewed with LIZABETH Marti.
--- NOTE | 2019-11-30 06:17 | NUR ---
Patient in room [facility]Y 355. I have received report from Annabella BARONE and had the opportunity to ask questions and assume patient care.
[2019-11-30 06:46] LABS: ALBUMIN 3.8 G/DL (3.4-5.0); ANION GAP 5 (8-16); BLOOD UREA NITROGEN 48 MG/DL (7-18); CALCIUM 8.8 MG/DL (8.5-10.1); CHLORIDE 95 MMOL/L (99-107); CREATININE 1.37 MG/DL (0.40-0.90); GLUCOSE 149 MG/DL (70-104); MAGNESIUM 2.8 MG/DL (1.5-2.4); POTASSIUM 4.1 MMOL/L (3.5-5.1); SODIUM 134 MMOL/L (135-145); TOTAL CARBON DIOXIDE 33.7 MMOL/L (24-32); eGFR 36 ML/MIN
[2019-11-30 07:00] VITALS: BP 145/73
[2019-11-30] MEDS: K and/or MAG REPLACEMENT MC SCH ×2 (08:00→20:00)
[2019-11-30] MEDS: benzonatate 100mg capsule PO PRN ×2 (09:10→22:43)
[2019-11-30] MEDS: docusate sod 100mg capsule PO SCH ×2 (09:11→22:43)
[2019-11-30] MEDS: metoprolol tartrate 25mg tablet PO SCH ×2 (09:11→22:44)
[2019-11-30] MEDS: atorvastatin 10mg tablet PO SCH (09:12)
[2019-11-30] MEDS: apixaban 2.5mg tablet PO SCH ×2 (09:13→22:44)
[2019-11-30] MEDS: lisinopril 10 MG tablet PO SCH (09:13)
[2019-11-30] MEDS: levoTHYROXINE 75mcg tablet PO SCH (09:13)
[2019-11-30] MEDS: furosemide 10 MG/1 ML 10ml inj IV SCH ×2 (09:15→22:45)
[2019-11-30] MEDS: dronedarone hcl 400mg tablet PO SCH ×2 (10:11→22:44)
[2019-11-30] MEDS: pantoprazole 40mg Tablet.DR PO SCH (10:11)
[2019-11-30 11:00] VITALS: BP 133/73
[2019-11-30] MEDS: ipratropium/albuterol 3ml nebule NEB SCH ×4 (11:58→23:59)
[2019-11-30] MEDS: normal saline 1000ml 1,000 ML IV SCH (15:25)
[2019-11-30] MEDS: levoFLOXACIN 500mg tablet PO SCH (16:52)
[2019-11-30 18:00] VITALS: BP 152/65
--- NOTE | 2019-11-30 18:32 | NUR ---
Problems reprioritized. Patient report given, questions answered & plan of care reviewed with Annabella BARONE.
[2019-11-30] MEDS: Melatonin 3mg tablet PO SCH (22:43)
[2019-11-30] MEDS: magnesium hydroxide 30ml (MOM) UD suspension PO PRN (22:55)
[2019-12-01 00:34] VITALS: BP 142/84
[2019-12-01] MEDS: methylPREDNISolone sod succ/PF 40mg inj. IV SCH ×4 (03:16→21:27)
[2019-12-01] MEDS: ipratropium/albuterol 3ml nebule NEB SCH ×6 (03:33→23:15)
--- NOTE | 2019-12-01 06:12 | NUR ---
Problems reprioritized. Patient report given, questions answered & plan of care reviewed with LIZABETH Marti.
--- NOTE | 2019-12-01 06:30 | NUR ---
Patient in room [facility]Y 355. I have received report from Annabella BARONE and had the opportunity to ask questions and assume patient care.
[2019-12-01 07:32] VITALS: BP 145/82
[2019-12-01] MEDS: K and/or MAG REPLACEMENT MC SCH ×2 (08:00→20:00)
[2019-12-01] MEDS: lisinopril 10 MG tablet PO SCH (09:33)
[2019-12-01] MEDS: atorvastatin 10mg tablet PO SCH (09:34)
[2019-12-01] MEDS: apixaban 2.5mg tablet PO SCH ×2 (09:34→21:29)
[2019-12-01] MEDS: pantoprazole 40mg Tablet.DR PO SCH (09:34)
[2019-12-01] MEDS: docusate sod 100mg capsule PO SCH ×2 (09:34→21:29)
[2019-12-01] MEDS: levoTHYROXINE 75mcg tablet PO SCH (09:35)
[2019-12-01] MEDS: metoprolol tartrate 25mg tablet PO SCH ×2 (09:35→21:28)
[2019-12-01] MEDS: dronedarone hcl 400mg tablet PO SCH ×2 (09:35→21:29)
[2019-12-01] MEDS: furosemide 10 MG/1 ML 10ml inj IV SCH ×2 (09:36→21:27)
[2019-12-01] MEDS: benzonatate 100mg capsule PO PRN (09:46)
[2019-12-01 11:00] VITALS: BP 101/74
[2019-12-01] MEDS: levoFLOXACIN 500mg tablet PO SCH (12:29)
[2019-12-01 12:34] LABS: BASOPHILS % (AUTO) 0.2 % (0-1); EOSINOPHILS % (AUTO) 0 % (0-6); HEMATOCRIT 42.9 % (35.0-45.0); HEMOGLOBIN 14.6 g/dl (12.0-16.0); LYMPHOCYTES # (AUTO) 0.8 X10'3 (1.1-4.8); LYMPHOCYTES % (AUTO) 5.4 % (21-51); MEAN CORPUSCULAR HEMOGLOBIN 30.2 PG (27.0-31.0); MEAN CORPUSCULAR HGB CONC 33.9 g/dL (33.0-36.5); MEAN PLATELET VOLUME 9.6 FL (7.4-10.4); MONOCYTES # (AUTO) 0.8 X10'3 (0-0.9); MONOCYTES % (AUTO) 5.1 % (2-12); NEUTROPHILS # (AUTO) 13.4 X10'3 (1.8-7.7); NEUTROPHILS % (AUTO) 89.3 % (42-75); PLATELET COUNT 158 X10'3 (140-440); RED BLOOD COUNT 4.82 X10'6 (4.20-5.60); RED CELL DISTRIBUTION WIDTH 14.4 % (11.5-14.5)
[2019-12-01 12:44] LABS: ALBUMIN 3.7 G/DL (3.4-5.0); ANION GAP 8 (8-16); BLOOD UREA NITROGEN 51 MG/DL (7-18); BUN/CREATININE RATIO 31.9 (6.6-38.0); CALCIUM 8.6 MG/DL (8.5-10.1); CHLORIDE 90 MMOL/L (99-107); GLUCOSE 162 MG/DL (70-104); POTASSIUM 3.9 MMOL/L (3.5-5.1); SODIUM 132 MMOL/L (135-145); eGFR 30 ML/MIN
--- NOTE | 2019-12-01 18:28 | NUR ---
Problems reprioritized. Patient report given, questions answered & plan of care reviewed with Hank BARONE.
--- NOTE | 2019-12-01 18:30 | NUR ---
Patient in room [facility]Y 355. I have received report from FELICIANO BARONE and had the opportunity to ask questions and assume patient care.
[2019-12-01 19:00] VITALS: BP 122/51
--- NOTE | 2019-12-01 21:00 | NUR ---
Patient in room BETY 355. I have received report from Nancy Cruz RN and had the opportunity to ask questions and assume patient care. Addendum: 12/02/19 at 0348 by Eliane Maldonado RN Amended: Links added.
[2019-12-01] MEDS: lactobacillus rhamnosus 10,000 MMU CELLS/CAPSULE PO SCH (21:29)
[2019-12-01] MEDS: Melatonin 3mg tablet PO SCH (21:30)
[2019-12-01] MEDS: magnesium hydroxide 30ml (MOM) UD suspension PO PRN (21:32)
--- NOTE | 2019-12-01 21:48 | NUR ---
amb around unit [facility] sba only alyssa well. pt c/o some sob laste 50 ft. sat 94 to 96%, hr up to 154, Addendum: 12/01/19 at 2149 by Eliane Maldonado RN Amended: Links added.
[2019-12-01 23:30] VITALS: BP 106/52
[2019-12-02] MEDS: methylPREDNISolone sod succ/PF 40mg inj. IV SCH ×3 (01:40→14:46)
[2019-12-02] MEDS: ipratropium/albuterol 3ml nebule NEB SCH ×4 (03:12→15:38)
--- NOTE | 2019-12-02 06:30 | NUR ---
Patient in room [facility]Y 355. I have received report from YVONNE BARONE and had the opportunity to ask questions and assume patient care.
--- NOTE | 2019-12-02 06:31 | NUR ---
Problems reprioritized. Patient report given, questions answered & plan of care reviewed with LIZABETH Marti. Addendum: 12/02/19 at 0632 by Eliane Maldonado RN Amended: Links added.
[2019-12-02 07:35] VITALS: BP 99/54
[2019-12-02] MEDS: K and/or MAG REPLACEMENT MC SCH (08:00)
[2019-12-02] MEDS: apixaban 2.5mg tablet PO SCH (08:47)
[2019-12-02] MEDS: dronedarone hcl 400mg tablet PO SCH (08:47)
[2019-12-02] MEDS: docusate sod 100mg capsule PO SCH (08:47)
[2019-12-02] MEDS: levoTHYROXINE 75mcg tablet PO SCH (08:47)
[2019-12-02] MEDS: lactobacillus rhamnosus 10,000 MMU CELLS/CAPSULE PO SCH (08:47)
[2019-12-02] MEDS: atorvastatin 10mg tablet PO SCH (08:48)
[2019-12-02] MEDS: metoprolol tartrate 25mg tablet PO SCH (08:48)
[2019-12-02] MEDS: pantoprazole 40mg Tablet.DR PO SCH (08:48)
[2019-12-02] MEDS: lisinopril 10 MG tablet PO SCH (08:48)
[2019-12-02] MEDS: furosemide 10 MG/1 ML 10ml inj IV SCH (08:49)
[2019-12-02 11:00] VITALS: BP 118/61
[2019-12-02] MEDS: levoFLOXACIN 500mg tablet PO SCH (12:31)
[2019-12-02] MEDS ORDERED: LEVO500T89 PO (12:39)
[2019-12-02] MEDS ORDERED: FURO40TA4 PO (12:42)
[2019-12-02] MEDS ORDERED: PRED10TA23 PO (12:44)
[2019-12-02 15:36] LABS: ABG BASE EXCESS 8.6 mmol/L (-2.0-3.0); ABG HCO3 31.7 mmol/L (22.0-26.0); ABG OXYGEN SATURATION 95.2 % (95-98); ABG PCO2 (T) 38.4 mmHg (35.0-45.0); ABG PH (T) 7.535 (7.350-7.450); FCOHb 0.1 % (0.5-1.5); FLOW 2 L/min; FMetHb 0.3 % (0.3-1.12); FO2Hb 94.8 % (94-100); TOTAL HEMOGLOBIN 14.3 G/dl (12.0-16.0)
[2019-12-02] MEDS ORDERED: ATR0.5NEB IH ×2 (17:16)
--- NOTE | 2019-12-02 17:55 | NUR ---
PATIENT DISCHARGED WITH FAMILY IN ROOM. PATIENT LEFT WITH TRILOGY BEING DELIVERED. PATIENT EXPRESSED VERBAL UNDERSTANDING OF MEDICATION AND MEDICATION CHANGES. PATIENTS IV TAKEN OUT AT TIME OF DISCHARGE, MINIMAL BLEEDING AND CANULA WAS INTACT UPON DISCHARGE. PATIENT LEFT FLOOR VIA WHEEL CHAIR AND WAS TRANSPORTED HOME IN PRIVATE VEHICLE.
--- NOTE | 2019-12-03 14:03 | NUR ---
Case Management DC follow-up: Spoke to p & patient son, Teo. Son had called [facility] nurses station and spoke to nurse/Jessica about Dr Min needing alternative diuretic per pharmacy as Lasix was red flagged r/t pt allergy to sulfa. Pt also has had continuous chronic cough since DC that keeps pt up most of the night. Pt requests Ethacrynic Acid to replace Lasix & Benzonatate for chronic cough. Paged Dr Min w/pt request. pt would like Rx called into same pharm: [facility]. pt stated they asked nurse for the USAN before DC. Pt was not able to p-up any medications until today as it was Tuesday when DC/pharm closed. Family has received the Milk machine and states they will call [facility] to make some adjustments needed. [facility] is expected on . Family feels they will be ok until then if all of the adjustments are met for pt's comfort until then. Pt family has called several times to check on follow ups r/t Rx.
== END 2019-12-02 17:54 | disposition home health service (06) | DRG 292 ==
LOC: ER 13:28 → ED HOLD 15:52 → SUR 3N 18:20
PROVIDERS: ADMIT Internal Medicine; ATTEND Internal Medicine
PROC: 5A09357 Assistance with Respiratory Ventilation, Less than 24 Consecutive Hours, Continuous Positive Airway Pressure (ICD-10-PCS; principal; 2019-11-29)
PROC: 5A09357 Assistance with Respiratory Ventilation, Less than 24 Consecutive Hours, Continuous Positive Airway Pressure (ICD-10-PCS; 2019-11-30)
PROC: 5A09357 Assistance with Respiratory Ventilation, Less than 24 Consecutive Hours, Continuous Positive Airway Pressure (ICD-10-PCS; 2019-12-01)
PROC: 5A09357 Assistance with Respiratory Ventilation, Less than 24 Consecutive Hours, Continuous Positive Airway Pressure (ICD-10-PCS; 2019-12-02)
DX: I11.0 Hypertensive heart disease with heart failure (principal); E87.1 Hypo-osmolality and hyponatremia; I48.20 Chronic atrial fibrillation, unspecified; N17.9 Acute kidney failure, unspecified; I31.3 Pericardial effusion (noninflammatory); J06.9 Acute upper respiratory infection, unspecified; I50.43 Acute on chronic combined systolic (congestive) and diastolic (congestive) heart failure; E03.9 Hypothyroidism, unspecified; E78.00 Pure hypercholesterolemia, unspecified; E78.5 Hyperlipidemia, unspecified; M19.90 Unspecified osteoarthritis, unspecified site; G89.29 Other chronic pain; J43.9 Emphysema, unspecified; D69.6 Thrombocytopenia, unspecified; G47.30 Sleep apnea, unspecified; M54.9 Dorsalgia, unspecified; K21.9 Gastro-esophageal reflux disease without esophagitis; Z66 Do not resuscitate; Z79.01 Long term (current) use of anticoagulants; Z80.3 Family history of malignant neoplasm of breast; Z95.0 Presence of cardiac pacemaker; Z85.72 Personal history of non-Hodgkin lymphomas; Z90.49 Acquired absence of other specified parts of digestive tract; Z88.0 Allergy status to penicillin; Z88.2 Allergy status to sulfonamides; Z88.8 Allergy status to other drugs, medicaments and biological substances; Z80.1 Family history of malignant neoplasm of trachea, bronchus and lung
CPT/HCPCS: 36415; 36600; 71045; 71046; 71250; 80048; 80053; 82803; 83605; 83735; 84443; 84484; 85018; 85025; 87040; 87081; 93005; 93308; 94640; 94660; 94760; 96374; 96375; 99285; G0378; J1940; J2270; J2920; J2930; J7030

== ENCOUNTER 2020-01-08 06:56 | Day surgery (SDC) | payer MEDICARE, OTHER ==
[2020-01-07 11:06] LABS: BASOPHILS # (AUTO) 0.1 X10'3 (0-0.2); BASOPHILS % (AUTO) 0.6 % (0-1); EOSINOPHILS # (AUTO) 0.1 X10'3 (0-0.9); EOSINOPHILS % (AUTO) 0.6 % (0-6); HEMATOCRIT 34.9 % (35.0-45.0); HEMOGLOBIN 11.6 g/dl (12.0-16.0); LYMPHOCYTES # (AUTO) 1.5 X10'3 (1.1-4.8); LYMPHOCYTES % (AUTO) 17.2 % (21-51); MEAN CORPUSCULAR HEMOGLOBIN 29.4 PG (27.0-31.0); MEAN CORPUSCULAR HGB CONC 33.2 g/dL (33.0-36.5); MEAN CORPUSCULAR VOLUME 88.5 FL (78-98); MEAN PLATELET VOLUME 8.9 FL (7.4-10.4); MONOCYTES # (AUTO) 0.6 X10'3 (0-0.9); MONOCYTES % (AUTO) 7.1 % (2-12); NEUTROPHILS # (AUTO) 6.5 X10'3 (1.8-7.7); NEUTROPHILS % (AUTO) 74.5 % (42-75); PLATELET COUNT 163 X10'3 (140-440); RED BLOOD COUNT 3.95 X10'6 (4.20-5.60); RED CELL DISTRIBUTION WIDTH 15.5 % (11.5-14.5); WHITE BLOOD COUNT 8.7 X10'3 (4.5-11.0)
[2020-01-07 11:16] LABS: ALBUMIN 3.3 G/DL (3.4-5.0); ANION GAP 6 (8-16); BLOOD UREA NITROGEN 34 MG/DL (7-18); BUN/CREATININE RATIO 22.7 (6.6-38.0); CALCIUM 8.5 MG/DL (8.5-10.1); CHLORIDE 98 MMOL/L (99-107); GLUCOSE 147 MG/DL (70-104); POTASSIUM 3.8 MMOL/L (3.5-5.1); SODIUM 137 MMOL/L (135-145); TOTAL CARBON DIOXIDE 33.1 MMOL/L (24-32); eGFR 33 ML/MIN
[2020-01-08] VITALS (20 sets, daily range): BP systolic 90–143; BP diastolic 43–75
[~2020-01-08] VITALS: Ht 167.6 cm; Wt 73.6 kg
[~2020-01-08 06:56] MED LIST changes: +ATR0.5NEB IH; -DRON400T2 PO; +FLEC100T2 PO; +LISI10TA4 PO; -METO10TA8 PO
[2020-01-08] MEDS ORDERED: atropine 0.1mg/ml 10ml syringe IV ONE (07:20)
[2020-01-08] MEDS ORDERED: LORazepam 0.5 MG tablet PO ONE (07:20)
[2020-01-08] MEDS ORDERED: diphenhydrAMINE 25mg capsule PO ONE (07:20)
[2020-01-08] MEDS ORDERED: normal saline 1000ml 1,000 ML IV SCH (07:20)
[2020-01-08] MEDS ORDERED: amiodarone in dextrose, iso-osm 150mg/100ml bag IV ONE (07:20)
[2020-01-08] MEDS ORDERED: MIDAZolam 1mg/ml 10ml vial IV ONE (07:20)
[2020-01-08] MEDS ORDERED: morphine 10mg/ml inj. IV ONE (07:20)
[2020-01-08] MEDS ORDERED: DIGO125T PO (07:43)
[2020-01-08] MEDS ORDERED: FURO-149 PO (07:43)
[2020-01-08] MEDS ORDERED: ALB0.5UD IH (07:43)
[2020-01-08] MEDS ORDERED: [UNRECOGNIZED DRUG - CODE] PO (07:43)
[2020-01-08] MEDS ORDERED: PRED10TA23 PO (07:43)
[2020-01-08] MEDS ORDERED: APIX2.5T PO (07:43)
[2020-01-08] MEDS ORDERED: ondansetron/PF 4mg/2ml inj ONE (12:28)
[2020-01-08] MEDS ORDERED: ondansetron/PF 4mg/2ml inj IV ONE ×2 (12:35→14:00)
--- NOTE | 2020-01-08 13:15 | NUR ---
WALKED PT IN HALLWAY, DENIES CP, DENIES SOB. WHEN PT ARRIVED BACK IN ROOM SHE BECAME NAUSEOUS, BP 90/53, HR 77, SPO2 97% RA, PT SAT WITH FEET DANGLING. CALLED MD, WAITING FOR CALL BACK.
--- NOTE | 2020-01-08 13:30 | NUR ---
MD gave new orders for EKG to be done. Zofran ordered if patient's nausea returns. NS bolus 250 ordered. will continue to monitor.
--- NOTE | 2020-01-08 15:30 | NUR ---
Nils is at the bedside with patient and family.
== END 2020-01-08 15:50 | disposition home or self-care (01) ==
LOC: SSTAY O 06:56
PROVIDERS: ATTEND Internal Medicine Cardiovascular Disease
DX: I48.19 Other persistent atrial fibrillation (principal); I49.9 Cardiac arrhythmia, unspecified
CPT/HCPCS: 36415; 80048; 85025; 85610; 92960; 93005; J2250; J2270; J2405; J7030

== ENCOUNTER 2022-01-07 18:31 | Emergency (ER) | payer MEDICARE, OTHER ==
[~2022-01-07] VITALS: Ht 167.6 cm; Wt 75.0 kg
[~2022-01-07 18:31] MED LIST changes: -ATR0.5NEB IH; +DIGO125T PO; +DOCU100C40 PO; +FER325T PO; -FLEC100T2 PO; +FURO-149 PO; -LISI10TA4 PO; +POTA-197 PO; -POTA20TA10 PO
[2022-01-07 19:11] LABS: BASOPHILS % (AUTO) 1.1 % (0-1); EOSINOPHILS # (AUTO) 0.1 X10'3 (0-0.9); EOSINOPHILS % (AUTO) 4.3 % (0-6); HEMATOCRIT 32.6 % (35.0-45.0); HEMOGLOBIN 10.7 g/dl (12.0-16.0); LYMPHOCYTES # (AUTO) 0.9 X10'3 (1.1-4.8); MEAN CORPUSCULAR HEMOGLOBIN 30.1 PG (27.0-31.0); MEAN CORPUSCULAR HGB CONC 32.9 g/dL (33.0-36.5); MEAN CORPUSCULAR VOLUME 91.4 FL (78-98); MEAN PLATELET VOLUME 9.1 FL (7.4-10.4); MONOCYTES # (AUTO) 0.3 X10'3 (0-0.9); MONOCYTES % (AUTO) 7.7 % (2-12); NEUTROPHILS % (AUTO) 59.9 % (42-75); PLATELET COUNT 122 X10'3 (140-440); RED BLOOD COUNT 3.57 X10'6 (4.20-5.60); RED CELL DISTRIBUTION WIDTH 14.5 % (11.5-14.5); WHITE BLOOD COUNT 3.3 X10'3 (4.5-11.0)
[2022-01-07 19:37] LABS: ALANINE AMINOTRANSFERASE 17 U/L (12-78); ALBUMIN 3.7 G/DL (3.4-5.0); ALBUMIN/GLOBULIN RATIO 1.4 (1.1-1.5); ALKALINE PHOSPHATASE 74 IU/L (46-116); ANION GAP 10 (8-16); ASPARTATE AMINO TRANSFERASE 22 U/L (10-37); BILIRUBIN,TOTAL 0.5 MG/DL (0.1-1.0); BLOOD UREA NITROGEN 34 MG/DL (7-18); BUN/CREATININE RATIO 26.4 (6.6-38.0); CALCIUM 8.9 MG/DL (8.5-10.1); CHLORIDE 104 MMOL/L (99-107); CREATININE 1.29 MG/DL (0.40-0.90); GLUCOSE 111 MG/DL (70-104); POTASSIUM 3.8 MMOL/L (3.5-5.1); SODIUM 142 MMOL/L (135-145); TOTAL CARBON DIOXIDE 28.5 MMOL/L (24-32); TOTAL PROTEIN 6.3 G/DL (6.4-8.2); eGFR 39 ML/MIN
[2022-01-07 19:48] LABS: MAGNESIUM 2.1 MG/DL (1.5-2.4)
[2022-01-07 20:56] VITALS: BP 140/81
== END 2022-01-07 21:01 | disposition home or self-care (01) ==
LOC: ER 18:31
DX: J44.1 Chronic obstructive pulmonary disease with (acute) exacerbation (principal); R06.02 Shortness of breath; I48.91 Unspecified atrial fibrillation; I50.9 Heart failure, unspecified; E78.00 Pure hypercholesterolemia, unspecified; I11.0 Hypertensive heart disease with heart failure; K21.9 Gastro-esophageal reflux disease without esophagitis; G89.29 Other chronic pain; Z87.01 Personal history of pneumonia (recurrent); Z86.2 Personal history of diseases of the blood and blood-forming organs and certain disorders involving the immune mechanism; Z90.89 Acquired absence of other organs; Z90.49 Acquired absence of other specified parts of digestive tract; Z98.890 Other specified postprocedural states; Z72.89 Other problems related to lifestyle; Z88.8 Allergy status to other drugs, medicaments and biological substances; Z88.0 Allergy status to penicillin; Z88.2 Allergy status to sulfonamides; Z91.010 Allergy to peanuts; Z79.899 Other long term (current) drug therapy
CPT/HCPCS: 36415; 71045; 80053; 83735; 83880; 84484; 85025; 85610; 93005; 99285